=== PATIENT | female | born 1950 | race Caucasian/White ===

== ENCOUNTER 2023-09-03 23:26 | Observation (INO) | payer MEDICARE ==
[~2023-09-03] VITALS: Ht 154.9 cm; Wt 70.3 kg
[2023-09-03 23:28] VITALS: BP 157/135; PULSE 110; RESP 20; TEMP 97.4; O2SAT 96
[2023-09-04 00:52] LABS: BASOPHILS % (AUTO) 0.3 % (0.0-2.0); EOSINOPHILS # (AUTO) 0.1 K/uL (0-0.4); HEMATOCRIT 40.6 % (36-48); HEMOGLOBIN 13.7 g/dL (12.0-16.0); LYMPHOCYTES # (AUTO) 1.8 K/uL (2.5-16.5); LYMPHOCYTES % (AUTO) 25.5 % (20.5-51.1); MEAN CORPUSCULAR HEMOGLOBIN 31 pg (27-31); MEAN CORPUSCULAR HGB CONC 34 g/dL (33-37); MEAN CORPUSCULAR VOLUME 91.6 fL (80-94); MONOCYTES # (AUTO) 0.7 K/uL (0.8-1.0); MONOCYTES % (AUTO) 10.3 % (1.7-9.3); NEUTROPHILS # (AUTO) 4.4 K/uL (1.8-7.7); NEUTROPHILS % (AUTO) 62.9 % (42.2-75.2); PLATELET COUNT (AUTO) 187 K/uL (140-450); RED BLOOD CELL COUNT(AUTO) 4.43 MIL/uL (4.20-5.40); RED CELL DISTRIBUTION WIDTH 13.7 % (11.6-13.7)
[2023-09-04 01:02] LABS: ALANINE AMINOTRANSFERASE 18 U/L (12-78); ALBUMIN 3.2 g/dL (3.4-5.0); ALKALINE PHOSPHATASE 105 U/L (50-136); ANION GAP 7.9 (8-16); ASPARTATE AMINOTRANSFERASE 18 U/L (15-37); CALCIUM 8.7 mg/dL (8.5-10.1); CARBON DIOXIDE 29.7 mmol/L (21-32); CHLORIDE 102 mmol/L (98-107); CREATININE 0.6 mg/dL (0.6-1.3); GLUCOSE 230 mg/dL (74-106); LIPASE 31 U/L (16-77); POTASSIUM 3.6 mmol/L (3.5-5.1); SODIUM SERUM 136 mmol/L (136-145); TOTAL BILIRUBIN 0.5 mg/dL (0.0-1.0); TOTAL PROTEIN, SERUM 6.7 g/dL (6.4-8.2); UREA NITROGEN, BLOOD 21 mg/dL (7-18)
[2023-09-04] MEDS ORDERED: ASPIRIN 325 MG TAB PO ONE (02:35)
[2023-09-04] MEDS ORDERED: MORPHINE SULFATE 2 MG/ML SYR IVP PRN (03:40)
[2023-09-04] MEDS ORDERED: LORazepam 2 MG/ML VIAL IVP PRN (03:40)
[2023-09-04] MEDS ORDERED: ACETAMINOPHEN 325 MG TAB PO PRN (03:40)
[2023-09-04] MEDS ORDERED: ONDANSETRON 4 MG/2 ML VIAL IVP PRN (03:40)
[2023-09-04 05:15] VITALS: BP 135/70; PULSE 86; PULSE 87; PULSE 88; RESP 18; TEMP 98.8; O2SAT 98
[2023-09-04 08:00] VITALS: BP 146/56; PULSE 87; PULSE 89; RESP 18; TEMP 97.9; O2SAT 98
[2023-09-04] MEDS ORDERED: LOSA-272 PO (09:57)
[2023-09-04] MEDS ORDERED: ATOR40TA PO (09:57)
[2023-09-04] MEDS ORDERED: HUM SUBQ (09:57)
[2023-09-04] MEDS ORDERED: INSU300S SUBQ (09:57)
[2023-09-04] MEDS ORDERED: PAX20 PO (09:57)
[2023-09-04] MEDS ORDERED: PIOG15TA84 PO (09:57)
[2023-09-04] MEDS ORDERED: GLIP10TE PO (09:57)
[2023-09-04] MEDS ORDERED: INSU300S SQ (09:57)
[2023-09-04] MEDS ORDERED: METF-1139 PO (09:57)
[2023-09-04 12:00] VITALS: BP 153/69; PULSE 87; PULSE 92; RESP 20; TEMP 98.8; O2SAT 98
[2023-09-04 16:00] VITALS: BP 139/58; PULSE 77; PULSE 85; RESP 18; TEMP 97.6; O2SAT 98
[2023-09-04 16:28] VITALS: BP 139/58; PULSE 85; RESP 18; TEMP 97.6
== END 2023-09-04 17:19 | disposition home or self-care (01) ==
LOC: MED 23:26 → MTU 09-04 03:40
PROVIDERS: ADMIT Hospitalist; ATTEND Hospitalist
DX: R07.89 Other chest pain (principal); I10 Essential (primary) hypertension; F03.90 Unspecified dementia, unspecified severity, without behavioral disturbance, psychotic disturbance, mood disturbance, and anxiety; E11.9 Type 2 diabetes mellitus without complications; Z79.4 Long term (current) use of insulin; Z79.899 Other long term (current) drug therapy; Z95.0 Presence of cardiac pacemaker
CPT/HCPCS: 36415; 71045; 80053; 83690; 84484; 85025; 87081; 99284; G0378